=== PATIENT | female | born 1925 | race African-American/Black ===

== ENCOUNTER 2016-12-27 11:35 | Inpatient (IN) ==
[2016-12-27] MEDS ORDERED: 0.9 % Sodium Chloride 1,000 ML IVC ONE (12:02)
[2016-12-27 12:12] LABS: Bilirubin,Urine Negative (Negative); Blood,Urine Large (Negative); Color,Urine Yellow (Yellow); Glucose,Urine (UA) Normal (Normal); Ketones,Urine Negative (Negative); Leukocyte Esterase,Urine Moderate (Negative); Nitrite,Urine Negative (Negative); Protein,Urine Negative (Neg-Trace); Specific Gravity,Urine 1.021 (1.010-1.025); Urobilinogen,Urine Normal (Normal)
[2016-12-27 12:14] LABS: Clarity,Urine Slightly Cloudy (Clear); Hyaline Casts,Urine None Seen per lpf (None-Few); Squamous Epithelial Cell,Urine Many per lpf (None-Few); WBC,Urine 30-50 per hpf (0-3)
[2016-12-27 12:28] LABS: Bacteria,Urine Many per hpf (None-Few)
[2016-12-27 12:39] LABS: Basophils % 0.3 %; Eosinophils # 0.1 K/mcL (0.0-0.6); Eosinophils % 1.3 %; Hematocrit 36.2 % (35.3-44.9); Hemoglobin 11.2 g/dL (11.5-15.4); Immature Granulocytes % 0.1 % (0-4); Lymphocytes # 1.2 K/mcL (0.6-4.6); Lymphocytes % 17.2 %; Mean Corpuscular HGB Conc 30.9 g/dL (31.6-35.5); Mean Corpuscular Hemoglobin 28.5 pg (28.0-33.3); Mean Corpuscular Volume 92.1 fL (83.0-100.0); Mean Platelet Volume 10.6 fL (9.4-12.4); Monocytes # 0.6 K/mcL (0.0-1.3); Monocytes % 8.8 %; Platelet Count 226 K/mcL (140-400); Red Blood Count 3.93 M/mcL (3.82-4.97); Red Cell Distribution Width 14.3 % (11.5-14.5); Segmented Neutrophils % 72.3 %
[2016-12-27 12:55] LABS: BUN/Creatinine Ratio 30 (6-26); Blood Urea Nitrogen 31 mg/dL (7-20); Calcium 9.6 mg/dL (8.6-10.8); Carbon Dioxide 28 mEq/L (19-29); Chloride 102 mEq/L (98-109); Glucose 228 mg/dL (70-99); Osmolality,Calculated 302 (280-300); Potassium 4.1 mEq/L (3.5-4.5); Sodium 139 mEq/L (136-145); eGFR For African Americans > 60 (> 60); eGFR For Non-African Americans 51 (> 60)
--- NOTE | 2016-12-27 13:59 | Emergency Department Note ---
Disposition Clinical Impression: Weakness generalized Urinary tract infection Qualifiers: Urinary tract infection type: site unspecified Hematuria presence: with hematuria Qualified Code(s): N39.0 - Urinary tract infection, site not specified Disposition: Home, Self-Care Condition: Fair Referrals: Keshawn Escamilla MD [Primary Care Provider] - Forms: ED Satisfaction Letter Time of Disposition: 14:01 Weakness HPI - General Chief complaint: ED Weakness Stated complaint: Generalized weakness not eating x 2 days Time Seen by Provider: 12/27/16 11:39 Source: patient, family, EMS Mode of arrival: EMS Limitations: no limitations Nursing Notes Reviewed: Yes Vital Signs Reviewed: Yes - History of Present Illness Pt Subjective Complaint: generalized weakness/fatigue Onset (ago): day(s) (About 3 days) Duration: constant, gradually worsening Location: generalized Pain Scale: 0 Improves with: none Worsens with: exertion Associated symptoms: Reports: denies other symptoms - Related Data Home Medications Medication Instructions Recorded Confirmed Atorvastatin [Lipitor] 40 mg PO QAM 02/18/15 02/26/15 Donepezil [Aricept] 10 mg PO QAM 02/18/15 02/26/15 Losartan [Cozaar] 25 mg PO QAM 02/18/15 02/26/15 TraMADol [Ultram] 50 mg PO TID PRN 02/18/15 02/26/15 Trospium Chloride [Trospium 60 mg PO QAM 02/18/15 02/26/15 Chloride ER] Acetaminophen [Tylenol] 1,000 mg PO AD PRN 02/26/15 02/26/15 Aspirin Enteric Coated [Aspirin EC] 81 mg PO QAM 02/26/15 02/26/15 Previous Rx's Medication Instructions Recorded Hydrocodone/Acetaminophen [[place] 1 tab PO Q6H PRN #10 tab 06/06/15 5-325 Tablet] Allergies Allergy/AdvReac Type Severity Reaction Status Date / Time No Known Allergies Allergy Verified 02/18/15 16:09 All systems ED: reviewed and negative except as stated. Constitutional: Denies: fever, chills ENT ED: Denies: ear pain, throat pain, congestion Cardiovascular: Denies: chest pain, palpitations Respiratory: Denies: cough, dyspnea Gastrointestinal: Denies: abdominal pain, vomiting, diarrhea Genitourinary: Reports: dysuria. Denies: urgency, frequency Musculoskeletal: Denies: back pain Integumentary: Denies: rash Past Medical History - Past Medical History Attestation: Yes The following information was validated with the patient. Source: patient, obtained from family, nursing notes reviewed Medical history: Reports: cancer, dementia, diabetes, hyperlipidemia Surgical history: Reports: non-contributory Psychiatric history: Reports: no psych history MARINE TOWER OPERATOR history: Reports: no MARINE TOWER OPERATOR history - Social History Smoking Status: Never smoker Smokeless Tobacco Status: No Alcohol use: Reports: none Drug use: Reports: none Physical Exam - General Limitations: no limitations General appearance: alert, in no apparent distress - Head Head exam: atraumatic, normocephalic - Eye Eye exam: Present: normal appearance, PERRL, EOMI - ENT ENT exam: normal exam, normal oropharynx, mucous membranes moist, normal external ear exam - Neck Neck exam: Present: normal inspection, full ROM. Absent: meningismus - Chest Chest inspection: Present: normal inspection, symmetric chest wall rise. Absent : tenderness - Respiratory Respiratory exam: Present: normal lung sounds bilaterally. Absent: respiratory distress, wheezes - Cardiovascular Cardiovascular exam: Present: regular rate, normal rhythm, normal heart sounds - Abdominal Exam Abdominal exam: Present: soft, Non-Tender, normal bowel sounds - Extremities Exam Extremities exam: Present: normal inspection, full ROM - Neurological Exam Neurological exam: Present: alert, oriented X3. Absent: motor sensory deficit - Psychiatric Psychiatric exam: Present: normal affect, normal mood - Skin Skin exam: Present: warm, dry. Absent: rash Course Course Narrative: She presents with generalized weakness. No focal neurologic findings on evaluation. The physical exam does not identify the etiology. We will initiate a workup for weakness. Disposition will be based on diagnostic results and reevaluation. - Reevaluation(s) Reevaluation #1: Urinalysis positive for infection. Rest of the workup is negative. Patient is to be admitted because she is so weak at home as a result of this infection. I gave her IV Rocephin. I already spoke with the hospitalist who is accepted her for admission. Time: 14:03 - Consultations Consultation #1: Dr. Ramos, hospitalist - I discussed the case with the hospitalist. He is accepted the patient for admission. Time: 14:02 Vital Signs Temperature 97.7 F 12/27/16 11:57 Pulse Rate 88 12/27/16 11:57 Respiratory Rate 18 12/27/16 11:57 Blood Pressure 122/52 12/27/16 11:57 O2 Sat by Pulse Oximetry 96 12/27/16 11:57 Temperature 97.7 F 12/27/16 11:57 Pulse Rate 88 12/27/16 11:57 Respiratory Rate 18 12/27/16 11:57 Blood Pressure 122/52 12/27/16 11:57 O2 Sat by Pulse Oximetry 96 12/27/16 11:57 Oxygen Delivery Oxygen Delivery Room Air Weakness - Lab Data Lab results reviewed: Yes I reviewed the patient's lab results. Result diagrams: 12/27/16 12:34 12/27/16 12:34 Lab Results 12/27/16 12/27/16 12/27/16 Range/Units 11:45 12:34 12:34 WBC (4.3-11.1) K/mcL RBC (3.82-4.97) M/mcL Hgb (11.5-15.4) g/dL Hct (35.3-44.9) % MCV (83.0-100.0) fL MCH (28.0-33.3) pg MCHC (31.6-35.5) g/dL RDW (11.5-14.5) % Plt Count (140-400) K/mcL MPV (9.4-12.4) fL Immature Gran % (0-4) % Seg Neutrophils % % Lymphocytes % % Monocytes % % Eosinophils % % Basophils % % Neutrophils # (1.6-8.9) K/mcL Lymphocytes # (0.6-4.6) K/mcL Monocytes # (0.0-1.3) K/mcL Eosinophils # (0.0-0.6) K/mcL Basophils # (0.0-0.2) K/mcL Sodium 139 (136-145) mEq/L Potassium 4.1 (3.5-4.5) mEq/L Chloride 102 (98-109) mEq/L Carbon Dioxide 28 (19-29) mEq/L BUN 31 H (7-20) mg/dL Creatinine 1.02 (0.57-1.11) mg/dL Est GFR ( Amer) > 60 (> 60) Est GFR (Non-Af Amer) 51 L (> 60) BUN/Creatinine Ratio 30 H (6-26) Glucose 228 H (70-99) mg/dL Calculated Osmolality 302 H (280-300) Lactic Acid 2.0 (0.5-2.2) mmol/L Calcium 9.6 (8.6-10.8) mg/dL Troponin I (0-0.03) ng/mL Urine Color Yellow (Yellow) Urine Clarity Slightly Cloudy A (Clear) Urine pH 6.0 (5.0-8.0) pH Units Ur Specific [place] 1.021 (1.010-1.025) Urine Protein Negative (Neg-Trace) mg/dL Urine Glucose (UA) Normal (Normal) mg/dL Urine Ketones Negative (Negative) mg/dL Urine Blood Large H (Negative) Urine Nitrite Negative (Negative) Urine Bilirubin Negative (Negative) Urine Urobilinogen Normal (Normal) mg/dL Ur Leukocyte Esterase Moderate H (Negative) Urine Microscopic RBC 5-15 H (0-3) per hpf Urine Microscopic WBC 30-50 H (0-3) per hpf Ur Squamous Epith Cells Many H (None-Few) per lpf Urine Bacteria Many H (None-Few) per hpf Hyaline Casts None Seen (None-Few) per lpf Ur Culture Indicated? YES A (NO) 12/27/16 12/27/16 Range/Units 12:34 12:34 WBC 7.0 (4.3-11.1) K/mcL RBC 3.93 (3.82-4.97) M/mcL Hgb 11.2 L (11.5-15.4) g/dL Hct 36.2 (35.3-44.9) % MCV 92.1 (83.0-100.0) fL MCH 28.5 (28.0-33.3) pg MCHC 30.9 L (31.6-35.5) g/dL RDW 14.3 (11.5-14.5) % Plt Count 226 (140-400) K/mcL MPV 10.6 (9.4-12.4) fL Immature Gran % 0.1 (0-4) % Seg Neutrophils % 72.3 % Lymphocytes % 17.2 % Monocytes % 8.8 % Eosinophils % 1.3 % Basophils % 0.3 % Neutrophils # 5.0 (1.6-8.9) K/mcL Lymphocytes # 1.2 (0.6-4.6) K/mcL Monocytes # 0.6 (0.0-1.3) K/mcL Eosinophils # 0.1 (0.0-0.6) K/mcL Basophils # 0.0 (0.0-0.2) K/mcL Sodium (136-145) mEq/L Potassium (3.5-4.5) mEq/L Chloride (98-109) mEq/L Carbon Dioxide (19-29) mEq/L BUN (7-20) mg/dL Creatinine (0.57-1.11) mg/dL Est GFR ( Amer) (> 60) Est GFR (Non-Af Amer) (> 60) BUN/Creatinine Ratio (6-26) Glucose (70-99) mg/dL Calculated Osmolality (280-300) Lactic Acid (0.5-2.2) mmol/L Calcium (8.6-10.8) mg/dL Troponin I 0.03 (0-0.03) ng/mL Urine Color (Yellow) Urine Clarity (Clear) Urine pH (5.0-8.0) pH Units Ur Specific [place] (1.010-1.025) Urine Protein (Neg-Trace) mg/dL Urine Glucose (UA) (Normal) mg/dL Urine Ketones (Negative) mg/dL Urine Blood (Negative) Urine Nitrite (Negative) Urine Bilirubin (Negative) Urine Urobilinogen (Normal) mg/dL Ur Leukocyte Esterase (Negative) Urine Microscopic RBC (0-3) per hpf Urine Microscopic WBC (0-3) per hpf Ur Squamous Epith Cells (None-Few) per lpf Urine Bacteria (None-Few) per hpf Hyaline Casts (None-Few) per lpf Ur Culture Indicated? (NO) - Radiology Data Radiology results reviewed: Yes I reviewed the patient's radiology results. - EKG Data EKG shows normal: sinus rhythm, axis, intervals, QRS complexes, ST-T waves Rate: normal Interpretation: no acute changes
[2016-12-27] MEDS ORDERED: Acetaminophen 325 MG TABLET PO PRN (14:59)
[2016-12-27] MEDS ORDERED: Naloxone 0.4 MG/ML INJ IVP PRN (14:59)
[2016-12-27] MEDS ORDERED: Ondansetron 4 MG/2 ML VIAL IVP PRN (14:59)
[2016-12-27] MEDS: 0.9 % Sodium Chloride 1,000 ML IVC SCH (16:05)
--- NOTE | 2016-12-27 16:24 | Internal Med History&Physical ---
Date of Encounter: 12/27/16 Time of Encounter: 16:15 Assessment and Plan (1) Urinary tract infection Current visit: Yes Status: Acute UTI present on admission, with hematuria Cultures pending Empiric IV Rocephin Labs in a.m. History of bladder cancer in remission - with frequent hematuria and UTIs as per family Urology consult Qualifiers: Urinary tract infection type: acute cystitis Hematuria presence: with hematuria Qualified Code(s): N30.01 - Acute cystitis with hematuria (2) Weakness generalized Current visit: Yes Status: Acute Likely secondary to urinary tract infection, poor by mouth intake and mild dehydration Continue empiric IV Rocephin, IV fluids labs in a.m. (3) Dementia Current visit: No Status: Chronic Chronic, continue donepezil Qualifiers: Dementia type: Alzheimer's disease Alzheimer's disease onset: unspecified onset Dementia behavioral disturbance: without behavioral disturbance Qualified Code(s): G30.9 - Alzheimer's disease, unspecified; F02.80 - Dementia in other diseases classified elsewhere without behavioral disturbance (4) HTN (hypertension) Current visit: No Status: Chronic Essential hypertension, controlled, continue home meds, monitor Qualifiers: Hypertension type: essential hypertension Qualified Code(s): I10 - Essential (primary) hypertension (5) Diabetes mellitus Current visit: No Status: Chronic Diabetes mellitus type 2, [id number], not on any medications Insulin sliding scale, glucose checks Qualifiers: Diabetes mellitus type: type 2 Diabetes mellitus complication status: without complication Diabetes mellitus correction insulin use: without correction use Qualified Code(s): E11.9 - Type 2 diabetes mellitus without complications (6) DVT prophylaxis Current visit: Yes Status: Acute Continue SCDs, avoid anticoagulants due to hematuria Internal Medicine - H&P: HPI Chief complaint: Generalized weakness Admitted From: Emergency Dept Plans for Post Hospital Care: Home History of present illness: Ms. Mg is a 89 year old female with past medical history of hypertension, diabetes, hyperlipidemia, dementia and history of urinary bladder cancer in remission. Patient presents to the ED with complaints of generalized weakness that started about 2-3 days ago. Symptoms have gradually worsened. On examination patient is awake and alert. She is unable to give a good history likely due to generalized weakness and dementia. Patient is ill-appearing and frail. Most history is obtained from family members at bedside and also from medical records. Family including and son state that patient has been feeling generalized weakness for the past 2-3 days and her appetite is also been poor. They state that she usually only drinks Ensure about 3 times a day and usually does not eat anything else. She has been doing this for almost 3 years. But over the past 2-3 days she has not been drinking much. She seems to be increasingly fatigued. Patient has not complained of any fever or cough and has not complained of any shortness of breath or chest pain. She has not had any diarrhea or vomiting. No aggravating or alleviating factors. Family states that she had no other acute complaints at this time. They also mentioned that she had bladder cancer about 3 years ago and has been treated, and it has been in remission. Patient also used to get frequent biopsies of the bladder wall, but is no longer getting this because of a thin bladder. Son states that she makes very little urine daily and she does have frequent hematuria and also has frequent UTIs. Initial evaluation in the ED reveals urinary tract infection and the elevated glucose. Chest x-ray and CT of the brain were negative for any acute processes. Patient did have a Victoria catheter placed in the ED and there is some blood seen in the catheter and the back. Patient is complaining of lower abdominal pain. Catheter will need to be flushed, and if she still complaining of pain it will need to be removed. Patient is being admitted for UTI, and will need IV antibiotics and IV fluids. Patient and family members have been explained about the condition and planned care. Understood and agreed. No unanswered questions. CODE STATUS full code. Past Med Surg Social Fam HX - Past Medical History Medical history: cancer (History of bladder cancer), dementia, diabetes, hyperlipidemia Psychiatric history: no psych history - Past Surgical History Surgical History: hysterectomy, other (Local Injection for bladder cancer) - Social History Smoking Status: Never smoker Smokeless Tobacco Status: No Alcohol use: none Drug use: none Internal Medicine - H&P: Meds Atorvastatin [Lipitor] 40 mg PO QAM 02/18/15 [History] Donepezil [Aricept] 10 mg PO QAM 02/18/15 [History] Losartan [Cozaar] 25 mg PO QAM 02/18/15 [History] Acetaminophen [Tylenol] 1,000 mg PO Q6H PRN 02/26/15 [History] Aspirin Enteric Coated [Aspirin EC] 81 mg PO QAM 02/26/15 [History] Tolterodine Tartrate [Detrol] 2 mg PO BID 12/27/16 [History] Allergies No Known Allergies Allergy (Verified 12/27/16 14:09) ROS unobtainable: other (Due to generalized weakness) All Systems PM: A 10-system review of systems was performed and is negative for pertinent findings except as documented above in the HPI. Review of systems: Patient is a poor historian, she does have a history of dementia HISTORY is obtained from family members including son and , and also from medical records. - Constitutional Constitutional: fatigue, weakness, no fever(s) - Constitutional Vitals: Temp Pulse Resp BP Pulse Ox 97.7 F 88 18 122/52 96 12/27/16 11:57 12/27/16 11:57 12/27/16 11:57 12/27/16 11:57 12/27/16 11:57 General appearance: Present: A&O X 1, pleasant, no acute distress Exam: Generalized weakness, chronically ill-appearing, awake, unable to provide a good history. - Head Head exam: Present: atraumatic - Eye Eye exam: Absent: scleral icterus - Neck Neck exam general surgery: Present: supple - Respiratory Respiratory exam: Present: CTAB. Absent: rales, rhonchi, wheezes, tachypnea - Cardiovascular Cardiovascular exam: Present: RRR, +S1, +S2 - GI/Abdominal GI/Abdominal exam: Present: soft, tenderness (Mild epigastric and suprapubic tenderness.), no peritoneal signs. Absent: distended, firm, guarding, rigid - Extremities Exam Extremities exam: Present: pedal edema (Mild bilateral 1+ pitting edema), radial pulses palpable and symetrical. Absent: cyanotic, tenderness - Neurological Exam Neurological exam: Present: no focal deficits. Absent: facial droop Additional comments: Patient is awake and alert, ill-appearing, generalized weakness, she does have dementia, no obvious deficits, does not verbalize well, she follows simple verbal commands Internal Med - H&P Results - Labs CBC & Chem 7: 12/27/16 12:34 12/27/16 12:34
[2016-12-27 16:27] LABS: INR 1.2; Prothrombin Time 13.5 Seconds (9.4-12.1)
[2016-12-27] MEDS ORDERED: D5% in Water 1,000 ML IVC PRN (17:20)
[2016-12-27] MEDS ORDERED: *HR* Dextrose 50 % in Water (Syg) 50 ML SYRINGE IVP PRN (17:20)
[2016-12-27] MEDS ORDERED: Dextrose Gel 15 GM PO PRN ×2 (17:20)
[2016-12-27] MEDS ORDERED: Insulin LISPRO 300 UNITS/3 ML VIAL SQ SCH ×2 (17:30→22:00)
[2016-12-27] MEDS ORDERED: *HR* Heparin 5,000 UNIT/ML VIAL SQ SCH (18:00)
[2016-12-27] MEDS: Famotidine 20 MG/2 ML VIAL IVP SCH (18:52)
[2016-12-27] MEDS: Tolterodine LA (24 HR) 4 MG CAP.ER.24H PO SCH (21:27)
[2016-12-27] MEDS: Insulin LISPRO 300 UNITS/3 ML VIAL SQ SCH (22:30)
[2016-12-28 04:06] LABS: Basophils % 0.1 %; Eosinophils # 0.1 K/mcL (0.0-0.6); Eosinophils % 0.8 %; Hematocrit 30.5 % (35.3-44.9); Hemoglobin 9.6 g/dL (11.5-15.4); Immature Granulocytes % 0.4 % (0-4); Immature Platelets 3.4 % (1.1-6.1); Lymphocytes % 13.5 %; Mean Corpuscular HGB Conc 31.5 g/dL (31.6-35.5); Mean Corpuscular Hemoglobin 29.1 pg (28.0-33.3); Mean Corpuscular Volume 92.4 fL (83.0-100.0); Mean Platelet Volume 11.3 fL (9.4-12.4); Monocytes # 0.6 K/mcL (0.0-1.3); Monocytes % 7.3 %; Platelet Count 177 K/mcL (140-400); Red Cell Distribution Width 14.4 % (11.5-14.5); Segmented Neutrophils % 77.9 %
[2016-12-28 04:14] LABS: BUN/Creatinine Ratio 27 (6-26); Calcium 8.4 mg/dL (8.6-10.8); Carbon Dioxide 22 mEq/L (19-29); Chloride 108 mEq/L (98-109); Glucose 120 mg/dL (70-99); Osmolality,Calculated 290 (280-300); Potassium 3.9 mEq/L (3.5-4.5); Sodium 138 mEq/L (136-145); eGFR For African Americans > 60 (> 60); eGFR For Non-African Americans > 60 (> 60)
[2016-12-28 04:18] LABS: Blood Urea Nitrogen 20 mg/dL (7-20)
[2016-12-28] MEDS: Famotidine 20 MG/2 ML VIAL IVP SCH ×2 (06:05→17:10)
[2016-12-28] MEDS: Aspirin Enteric Coated 81 MG Tablet PO SCH (07:44)
--- NOTE | 2016-12-28 07:47 | Urology - Consult Note ---
Date of Encounter: 12/28/16 Time of Encounter: 07:37 - Assessment and Plan (1) Hematuria Current Visit: Yes Status: Acute Assessment and plan: 89-year-old woman with a history of hematuria and an indwelling catheter. She also has a history of bladder cancer. I would recommend continuing IV antibiotic for possible urinary tract infection. She will need a cystoscopy as an outpatient to evaluate for possible carcinoma in situ. No operative intervention is required at this time. We'll monitor her urine color for now. Qualifiers: Qualified Code(s): R31.0 - Gross hematuria (2) Cystitis Current Visit: No Status: Acute Assessment and plan: Her urinalysis is concerning for a bladder infection. She is currently on Rocephin. Await results of urine culture and tailor antibiotics appropriately. Urology [id number]:[email or web address] Consult date: 12/28/16 Reason for consult Urology: Gross Hematuria History of present illness: 89-year-old woman was admitted with a urinary tract infection and hematuria. She has a history of bladder cancer in the past and is followed by Dr. Rizo. She currently has a catheter in place. The urine is a light pink color. Obtaining history is difficult from her. She has a flat affect and does not communicate much. Past Med Surg Social Fam HX - Past Medical History Medical history: cancer, dementia, diabetes, hyperlipidemia Psychiatric history: no psych history - Past Surgical History Surgical History: hysterectomy, other - Social History Smoking Status: Never smoker Smokeless Tobacco Status: No Alcohol use: none Drug use: none - Family History Paternal Grandmother Hx Family Endocrine Disorder: Yes (DM) Medications and Allergies Atorvastatin [Lipitor] 40 mg PO QAM 02/18/15 [History] Donepezil [Aricept] 10 mg PO QAM 02/18/15 [History] Losartan [Cozaar] 25 mg PO QAM 02/18/15 [History] Acetaminophen [Tylenol] 1,000 mg PO Q6H PRN 02/26/15 [History] Aspirin Enteric Coated [Aspirin EC] 81 mg PO QAM 02/26/15 [History] Tolterodine Tartrate [Detrol] 2 mg PO BID 12/27/16 [History] Allergies No Known Allergies Allergy (Verified 12/27/16 14:09) Review of Systems ROS unobtainable: due to mental status Exam Initial Vital Signs Temp Pulse Resp BP Pulse Ox 97.7 F 88 18 122/52 96 12/27/16 11:57 12/27/16 11:57 12/27/16 11:57 12/27/16 11:57 12/27/16 11:57 - General physical appearance Present: well developed, no distress - Eyes Absent: icteric - ENT Present: normal nares - Neck Present: trachea midline - Respiratory Present: normal respiratory effort - Cardiovascular Cardiovascular exam IM: RRR - Abdomen Abdomen: Present: soft - Genitourinary Present: other (Victoria in place with light pink urine.) Urology Results - Labs 12/28/16 02:59 12/28/16 02:59 Abnormal lab results RBC 3.30 M/mcL (3.82-4.97) L 12/28/16 02:59 Hgb 9.6 g/dL (11.5-15.4) L D 12/28/16 02:59 Hct 30.5 % (35.3-44.9) L 12/28/16 02:59 MCHC 31.5 g/dL (31.6-35.5) L 12/28/16 02:59 PT 13.5 Seconds (9.4-12.1) H 12/27/16 12:34 BUN/Creatinine Ratio 27 (6-26) H 12/28/16 02:59 Glucose 120 mg/dL (70-99) H 12/28/16 02:59 POC Glucose 215 (58-89) H 12/27/16 19:34 Calcium 8.4 mg/dL (8.6-10.8) L 12/28/16 02:59 Urine Clarity Slightly Cloudy (Clear) A 12/27/16 11:45 Urine Blood Large (Negative) H 12/27/16 11:45 Ur Leukocyte Esterase Moderate (Negative) H 12/27/16 11:45 Urine Microscopic RBC 5-15 per hpf (0-3) H 12/27/16 11:45 Urine Microscopic WBC 30-50 per hpf (0-3) H 12/27/16 11:45 Ur Squamous Epith Cells Many per lpf (None-Few) H 12/27/16 11:45 Urine Bacteria Many per hpf (None-Few) H 12/27/16 11:45 Ur Culture Indicated? YES (NO) A 12/27/16 11:45 Diabetes panel 07/10/17 Range/Units 02:59 Sodium 138 (136-145) mEq/L Potassium 3.9 (3.5-4.5) mEq/L Chloride 108 (98-109) mEq/L Carbon Dioxide 22 (19-29) mEq/L BUN 20 D (7-20) mg/dL Creatinine 0.74 (0.57-1.11) mg/dL Glucose 120 H (70-99) mg/dL Calcium 8.4 L (8.6-10.8) mg/dL Calcium panel 12/28/16 Range/Units 02:59 Calcium 8.4 L (8.6-10.8) mg/dL Pituitary panel 12/28/16 Range/Units 02:59 Sodium 138 (136-145) mEq/L Potassium 3.9 (3.5-4.5) mEq/L Chloride 108 (98-109) mEq/L Carbon Dioxide 22 (19-29) mEq/L BUN 20 D (7-20) mg/dL Creatinine 0.74 (0.57-1.11) mg/dL Glucose 120 H (70-99) mg/dL Calcium 8.4 L (8.6-10.8) mg/dL Adrenal panel 12/28/16 Range/Units 02:59 Sodium 138 (136-145) mEq/L Potassium 3.9 (3.5-4.5) mEq/L Chloride 108 (98-109) mEq/L Carbon Dioxide 22 (19-29) mEq/L BUN 20 D (7-20) mg/dL Creatinine 0.74 (0.57-1.11) mg/dL Glucose 120 H (70-99) mg/dL Calcium 8.4 L (8.6-10.8) mg/dL All other labs normal. Consult Discharge Plan - Plan Referrals: Keshawn Escamilla MD [Primary Care Provider] -
[2016-12-28] MEDS: Insulin LISPRO 300 UNITS/3 ML VIAL SQ SCH ×4 (08:32→22:14)
--- NOTE | 2016-12-28 12:18 | Electrocardiograph Report ---
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
[2016-12-28] MEDS: 0.9 % Sodium Chloride 1,000 ML IVC SCH ×2 (14:53→15:12)
--- NOTE | 2016-12-28 18:43 | Internal Med Progress Note ---
<Kaushik Covarrubias - Last Filed: 12/28/16 18:43> Date of Encounter: 12/28/16 Time of Encounter: 08:00 - Assessment and plan (1) Cystitis Current Visit: No Status: Acute Assessment and plan: The patient has cystitis which is complicated by hematuria. Patient has extensive history of bladder cancer for which she has seen urology in the past. Although currently her white blood cell count is 7.7, there is a high concern for potential sepsis. Her lactic acid was previously 2.0. Urology has consultation is recommended a cystoscopy outpatient. This time we will treat the patient's UTI with IV Rocephin, and we will monitor closely.. (2) Hematuria Current Visit: Yes Status: Acute Assessment and plan: Urology has recommended outpatient cystoscopy. Qualifiers: Qualified Code(s): R31.0 - Gross hematuria (3) Dementia Current Visit: No Status: Chronic Qualifiers: Dementia type: Alzheimer's disease Alzheimer's disease onset: unspecified onset Dementia behavioral disturbance: without behavioral disturbance Qualified Code(s): G30.9 - Alzheimer's disease, unspecified; F02.80 - Dementia in other diseases classified elsewhere without behavioral disturbance (4) Diabetes mellitus Current Visit: No Status: Chronic Assessment and plan: Patient sugars are well controlled on current regimen. 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 We will continue to monitor. Qualifiers: Hypertension type: essential hypertension Qualified Code(s): I10 - Essential (primary) hypertension (6) DVT prophylaxis Current Visit: Yes Status: Acute Assessment and plan: SCDs are appropriate due to gross hematuria at this time. We will avoid anticoagulants. - Subjective Interval history: At the time of examination the patient was resting comfortably in bed. She was somnolent and somewhat agitated, however upon waking she was A&Ox3. She says that she's feeling a lot better in general, but does admit to some abdominal pain. - Constitutional Vitals: Temp Pulse Resp BP Pulse Ox 97.5 F L 68 15 96/63 98 12/28/16 15:35 12/28/16 15:35 12/28/16 15:35 12/28/16 15:35 12/28/16 15:35 General appearance: Present: A&O X 1, pleasant, no acute distress - Head Head exam: Present: atraumatic, normocephalic - Eye Eye exam: Present: PERRL, conjuntiva pink, sclera anicteric Pupils: Present: PERRL - Neck Neck exam general surgery: Present: supple, trachea midline. Absent: lymphadenopathy - Respiratory Respiratory exam: Present: CTAB. Absent: accessory muscle use, rales, rhonchi, wheezes - Cardiovascular Cardiovascular exam: Present: RRR, +S1, +S2. Absent: diastolic murmur, gallop, rubs, systolic murmur - GI/Abdominal GI/Abdominal exam: Present: guarding, normal bowel sounds, soft, tenderness. Absent: distended Additional comments: Voluntary guarding was present on examination. Patient showed tenderness to palpation in the lower left and lower right quadrants. Abdomen was soft. Bowel sounds were present in all 4 quadrants. - Extremities Exam Extremities exam: Present: warm, radial pulses palpable and symetrical. Absent : calf tenderness, cyanotic, pedal edema - Neurological Exam Neurological exam: Present: CN II-XII intact, oriented X3, no focal deficits. Absent: pronater drift, facial droop, speech deficit - Skin Skin exam: Present: dry, intact Internal Medicine: Result - Labs CBC & Chem 7: 12/28/16 02:59 12/28/16 02:59 Labs: Short CBC 12/28/16 Range/Units 02:59 WBC 7.7 (4.3-11.1) K/mcL Hgb 9.6 L D (11.5-15.4) g/dL Hct 30.5 L (35.3-44.9) % Plt Count 177 (140-400) K/mcL Neutrophils # 6.0 (1.6-8.9) K/mcL BMP 12/28/16 02:59 Sodium 138 Potassium 3.9 Chloride 108 Carbon Dioxide 22 BUN 20 D Creatinine 0.74 Glucose 120 H Calcium 8.4 L - ABG Interpretation ABG results: PT/INR, D-dimer PT 13.5 Seconds (9.4-12.1) H 12/27/16 12:34 - VTE Documentation of Mechanical Device: Intermittent pneumatic compression device Consult Discharge Plan - Plan Referrals: Keshawn Escamilla MD [Primary Care Provider] - <Rubén Romero - Last Filed: 12/28/16 19:18> Date of Encounter: 12/28/16 - Constitutional Vitals: Temp Pulse Resp BP Pulse Ox 97.5 F L 68 15 96/63 98 12/28/16 15:35 12/28/16 15:35 12/28/16 15:35 12/28/16 15:35 12/28/16 15:35 Internal Medicine: Result - Labs CBC & Chem 7: 12/28/16 02:59 12/28/16 02:59 Labs: Short CBC 12/28/16 Range/Units 02:59 WBC 7.7 (4.3-11.1) K/mcL Hgb 9.6 L D (11.5-15.4) g/dL Hct 30.5 L (35.3-44.9) % Plt Count 177 (140-400) K/mcL Neutrophils # 6.0 (1.6-8.9) K/mcL BMP 12/28/16 02:59 Sodium 138 Potassium 3.9 Chloride 108 Carbon Dioxide 22 BUN 20 D Creatinine 0.74 Glucose 120 H Calcium 8.4 L - ABG Interpretation ABG results: PT/INR, D-dimer PT 13.5 Seconds (9.4-12.1) H 12/27/16 12:34 - Attending Attestation I examined this patient and my medical decision-making was reviewed with the Resident Physician, Dr Covarrubias. I agree with the documented findings, disposition and treatment plan as described except to the extent set forth below. on examination the patient is tender to palpation in the suprapubic and area. Heart is regular. Plan: Continue Victoria catheter. Consult urology. Continue Pyridium.
[2016-12-28] MEDS: Tolterodine LA (24 HR) 4 MG CAP.ER.24H PO SCH (22:15)
[2016-12-29 05:22] LABS: Eosinophils # 0.1 K/mcL (0.0-0.6); Eosinophils % 1.7 %; Hematocrit 30.1 % (35.3-44.9); Hemoglobin 9.5 g/dL (11.5-15.4); Immature Granulocytes % 0.2 % (0-4); Lymphocytes # 1.1 K/mcL (0.6-4.6); Lymphocytes % 21.2 %; Mean Corpuscular HGB Conc 31.6 g/dL (31.6-35.5); Mean Corpuscular Hemoglobin 29.5 pg (28.0-33.3); Mean Corpuscular Volume 93.5 fL (83.0-100.0); Mean Platelet Volume 11.1 fL (9.4-12.4); Monocytes # 0.5 K/mcL (0.0-1.3); Monocytes % 8.9 %; Neutrophils # 3.5 K/mcL (1.6-8.9); Platelet Count 164 K/mcL (140-400); Red Blood Count 3.22 M/mcL (3.82-4.97); Red Cell Distribution Width 14.4 % (11.5-14.5)
[2016-12-29 05:37] LABS: BUN/Creatinine Ratio 16 (6-26); Blood Urea Nitrogen 11 mg/dL (7-20); Carbon Dioxide 24 mEq/L (19-29); Chloride 110 mEq/L (98-109); Glucose 117 mg/dL (70-99); Osmolality,Calculated 288 (280-300); Potassium 3.5 mEq/L (3.5-4.5); Sodium 139 mEq/L (136-145); eGFR For African Americans > 60 (> 60); eGFR For Non-African Americans > 60 (> 60)
[2016-12-29] MEDS: Famotidine 20 MG/2 ML VIAL IVP SCH ×2 (06:19→17:41)
[2016-12-29] MEDS: 0.9 % Sodium Chloride 1,000 ML IVC SCH ×2 (06:23→19:39)
[2016-12-29] MEDS: Insulin LISPRO 300 UNITS/3 ML VIAL SQ SCH ×4 (07:25→20:46)
[2016-12-29] MEDS ORDERED: *HR* Morphine 2 MG/ML SYRINGE IVP PRN (07:43)
[2016-12-29] MEDS ORDERED: Levofloxacin 750 MG/150 ML 750 MG/150 ML BAG IVPB SCH (08:00)
[2016-12-29] MEDS ORDERED: *HR* Heparin 5,000 UNIT/ML VIAL IVP ONE (08:00)
[2016-12-29] MEDS ORDERED: *HR* Heparin 5,000 UNIT/ML VIAL IVP PRN ×2 (08:00)
[2016-12-29] MEDS ORDERED: Heparin 25,000 UNIT/500 ML D5W 25,000 UNIT/500 ML MLS IVC SCH (08:00)
--- NOTE | 2016-12-29 08:10 | Internal Med Progress Note ---
Date of Encounter: 12/29/16 Time of Encounter: 08:03 - Assessment and plan (1) Non-STEMI (non-ST elevated myocardial infarction) Current Visit: Yes Status: Acute Assessment and plan: EKG shows T-wave inversions more pronounced in V2 and V3 on the first EKG, change from the prior one Continue aspirin and Lipitor Morphine as needed, nitroglycerin as needed Start heparin drip, may discontinue if gross hematuria is found. Send a UA to confirm hematuria is most likely the color of the urine is because the patient is taking Pyridium Stop Pyridium Cardiology consult (2) Cystitis Current Visit: No Status: Acute Assessment and plan: Acute metabolic encephalopathy likely exacerbated by urinary tract infection, patient has dementia at baseline Patient has extensive history of bladder cancer for which she has seen urology in the past. Her lactic acid was previously 2.0. Urology has consultation is recommended a cystoscopy as outpatient. Stop Rocephin as the patient has 3 prior cultures positive for Pseudomonas sensitive to Levaquin Start Levaquin, continue IV fluids Urine culture pending (3) Dementia Current Visit: No Status: Chronic Qualifiers: Dementia type: Alzheimer's disease Alzheimer's disease onset: unspecified onset Dementia behavioral disturbance: without behavioral disturbance Qualified Code(s): G30.9 - Alzheimer's disease, unspecified; F02.80 - Dementia in other diseases classified elsewhere without behavioral disturbance (4) HTN (hypertension) Current Visit: No Status: Chronic Assessment and plan: Hold losartan for now Qualifiers: Hypertension type: essential hypertension Qualified Code(s): I10 - Essential (primary) hypertension (5) Diabetes mellitus Current Visit: No Status: Chronic Assessment and plan: Continue insulin sliding scale. 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: without half-way use Qualified Code(s): E11.9 - Type 2 diabetes mellitus without complications (6) Urinary tract infection Current Visit: Yes Status: Acute Qualifiers: Urinary tract infection type: acute cystitis Hematuria presence: with hematuria Qualified Code(s): N30.01 - Acute cystitis with hematuria (7) Anemia Current Visit: Yes Status: Acute Assessment and plan: Possible acute blood lows anemia from prior hematuria May need to discontinue heparin drip if hemoglobin and hematocrit drops and gross hematuria is evidenced Qualifiers: Anemia type: iron deficiency Iron deficiency anemia type: other iron deficiency Qualified Code(s): D50.8 - Other iron deficiency anemias - Subjective Interval history: The patient is oriented only in person, was complaining of chest pain according to nurse earlier today, denies any chest pain or shortness of breath at the moment unable to provide history and unable to complete review of systems due to the patient's severe dementia - Constitutional Vitals: Temp Pulse Resp BP Pulse Ox 98.2 F 70 14 117/74 97 12/29/16 07:03 12/29/16 07:03 12/29/16 07:03 12/29/16 07:03 12/29/16 07:03 General appearance: Present: A&O X 1, pleasant, no acute distress - Head Head exam: Present: atraumatic, normocephalic - Eye Eye exam: Present: PERRL, conjuntiva pink, sclera anicteric Pupils: Present: PERRL - Neck Neck exam general surgery: Present: supple, trachea midline. Absent: lymphadenopathy - Respiratory Respiratory exam: Present: CTAB. Absent: accessory muscle use, rales, rhonchi, wheezes - Cardiovascular Cardiovascular exam: Present: RRR, +S1, +S2. Absent: diastolic murmur, gallop, rubs, systolic murmur - GI/Abdominal GI/Abdominal exam: Present: normal bowel sounds, soft, no peritoneal signs. Absent: distended, tenderness - Extremities Exam Extremities exam: Present: warm, radial pulses palpable and symetrical. Absent : calf tenderness, cyanotic, pedal edema Additional comments: Victoria catheter in place. Urine Appears reddish most likely because the patient is on Pyridium - Neurological Exam Neurological exam: Present: CN II-XII intact, no focal deficits. Absent: oriented X3, pronater drift, facial droop, speech deficit - Skin Skin exam: Present: dry, intact Internal Medicine: Result - Labs CBC & Chem 7: 12/29/16 04:35 12/29/16 04:35 Labs: Short CBC 12/29/16 Range/Units 04:35 WBC 5.2 (4.3-11.1) K/mcL Hgb 9.5 L (11.5-15.4) g/dL Hct 30.1 L (35.3-44.9) % Plt Count 164 (140-400) K/mcL Neutrophils # 3.5 (1.6-8.9) K/mcL BMP 12/29/16 04:35 Sodium 139 Potassium 3.5 Chloride 110 H Carbon Dioxide 24 BUN 11 Creatinine 0.69 Glucose 117 H Calcium 8.0 L Cardiac Enzymes 12/29/16 Range/Units 04:35 Troponin I 1.54 H* (0-0.03) ng/mL - ABG Interpretation ABG results: PT/INR, D-dimer PT 13.5 Seconds (9.4-12.1) H 12/27/16 12:34 - VTE Documentation of Mechanical Device: Intermittent pneumatic compression device Consult Discharge Plan - Plan Referrals: Keshawn Escamilla MD [Primary Care Provider] -
[2016-12-29] MEDS ORDERED: Nitroglycerin 0.4 MG TAB.SUBL SL PRN (08:15)
[2016-12-29] MEDS: Aspirin Enteric Coated 81 MG Tablet PO SCH (08:48)
[2016-12-29 09:22] LABS: Hematocrit 32.9 % (35.3-44.9); Hemoglobin 10.5 g/dL (11.5-15.4); Mean Corpuscular HGB Conc 31.9 g/dL (31.6-35.5); Mean Corpuscular Hemoglobin 29.7 pg (28.0-33.3); Mean Corpuscular Volume 93.2 fL (83.0-100.0); Mean Platelet Volume 10.8 fL (9.4-12.4); Platelet Count 172 K/mcL (140-400); Red Blood Count 3.53 M/mcL (3.82-4.97); Red Cell Distribution Width 14.4 % (11.5-14.5)
--- NOTE | 2016-12-29 09:26 | Cardiology Consult Note ---
Date of Encounter: 12/29/16 Time of Encounter: 08:40 Assessment and Plan (1) Non-STEMI (non-ST elevated myocardial infarction) Current Visit: Yes Status: Acute Patient presented to ED with hematuria, decreased po intake, and weakness. Reportedly developed chest pain early this AM--troponin was drawn and 1.5 with anterior ECG changes. She is pain free upon exam; has baseline dementia, alert to person only. Poor functional status. Recommend conservative medical management given dementia and questionable bladder CA relapse with hematuria/anemia. Not presently a candidate for LHC. Agree with IV heparin gtt for 24-48 hours--monitor H/H closely. Continue asa and statin. Will add low dose betablocker. Check echocardiogram, trend troponin. No indication for cardiac rehab at this time. Telemetry monitoring. Will continue to follow. (2) Dementia Current Visit: Yes Status: Chronic Baseline dementia; patient alert to self only. Qualifiers: Dementia type: Alzheimer's disease Alzheimer's disease onset: unspecified onset Dementia behavioral disturbance: without behavioral disturbance Qualified Code(s): G30.9 - Alzheimer's disease, unspecified; F02.80 - Dementia in other diseases classified elsewhere without behavioral disturbance (3) Hematuria Current Visit: Yes Status: Acute Hx of bladder cancer, previously in remission. HgB 11.2 upon admission, now 9.5. UA--large amount of blood; repeat UA collected this AM. Urology following; has recommend outpatient cysto to r/o carcinoma in situ given hematuria. Qualifiers: Hematuria type: unspecified type Qualified Code(s): R31.9 - Hematuria, unspecified Discussion w patient/family: The assessment and plan as outlined above was discussed with the patient and/or family members who expressed understanding and agreement. All questions were answered. Thank you for involving us in the care of your patient. Please call with any questions. The patient will be discussed and reviewed with Dr. Conti; changes to be made accordingly. History of Present Illness Consult date: 12/29/16 Requesting physician: Bam Riggs Consult reason: NSTEMI Chief complaint: chest pain, AMS History of present illness: Ms. Mg is a 89 year old female with PMHx significant for HTN, DMII, dementia, bladder CA (remission), frequent UTIs, and PAD who presented to the ED with decreased oral intake, hematuria, and weakness. HPI obtained from H&P as patient is alert to self only due to advanced dementia. Reportedly patient complained of chest discomfort early this AM; troponin 1.5 ( initial negative) with anterior ECG changes. Upon exam this AM, she has no complaints aside from catheter related discomfort. 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 Past Med Surg Social Fam HX - Past Medical History Attestation: Yes The following information was validated with the patient. Source: unable to obtain, old records reviewed Medical history: cancer, dementia, diabetes, hyperlipidemia, other (PAD) Psychiatric history: no psych history - Past Surgical History Surgical History: hysterectomy, other - Social History Smoking Status: Never smoker Smokeless Tobacco Status: No Alcohol use: none Drug use: none - Family History Paternal Grandmother Hx Family Endocrine Disorder: Yes (DM) Medications and Allergies Atorvastatin [Lipitor] 40 mg PO QAM 02/18/15 [History] Donepezil [Aricept] 10 mg PO QAM 02/18/15 [History] Losartan [Cozaar] 25 mg PO QAM 02/18/15 [History] Acetaminophen [Tylenol] 1,000 mg PO Q6H PRN 02/26/15 [History] Aspirin Enteric Coated [Aspirin EC] 81 mg PO QAM 02/26/15 [History] Tolterodine Tartrate [Detrol] 2 mg PO BID 12/27/16 [History] Allergies No Known Allergies Allergy (Verified 12/27/16 14:09) All Systems Review: A 10-system review of systems was performed and is negative for pertinent findings except as documented above in the HPI. - Cardiovascular Cardiovascular: as per HPI Physical Examination Vital Signs, Last 4 Hours Temp Pulse Resp BP Pulse Ox 12/29/16 07:03 98.2 F 70 14 117/74 97 General: No Apparent Distress, Other (alert to self only) HEENT: Atraumatic Cardiac: Reg Rate and Rhythm, Normal S1 and S2 Lungs: Normal Breath Sounds Neuro: Alert and responsive (alert to self only) Abdomen: Soft Skin: No rashes noted on visualized skin Extremities: Other (mild BLE edema, non-pitting) Results 12/29/16 09:11 12/29/16 04:35 Lab Results 12/29/16 12/29/16 12/29/16 04:35 04:35 04:35 WBC 5.2 Hgb 9.5 L Hct 30.1 L Plt Count 164 Sodium 139 Potassium 3.5 Chloride 110 H Carbon Dioxide 24 BUN 11 Creatinine 0.69 Glucose 117 H Calcium 8.0 L Troponin I 1.54 H* Active Medications Acetaminophen (Tylenol) 650 mg PO Q6HR PRN PRN Reason: Mild Pain (1-3) Stop: 06/28/17 15:00 Aspirin (Aspirin Ec) 81 mg PO [facility] Stop: 06/29/17 09:01 Last Admin: 12/29/16 08:48 Dose: 81 mg Atorvastatin Calcium (Lipitor) 40 mg PO [facility] Stop: 06/28/17 15:16 Last Admin: 12/29/16 08:48 Dose: 40 mg Dextrose/Water (Dextrose 50% (Syg)) 25 ml IVP AD PRN PRN Reason: Hypoglycemia Stop: 06/28/17 17:21 Donepezil HCl (Aricept) 10 mg PO [facility] Stop: 06/29/17 09:01 Last Admin: 12/29/16 08:48 Dose: 10 mg Famotidine (Pepcid) 10 mg IVP Q12HR [facility] Stop: 06/28/17 18:01 Last Admin: 12/29/16 06:19 Dose: 10 mg Glucagon (Glucagen) 1 mg IM ONCE PRN PRN Reason: Hypoglycemia Stop: 06/28/17 17:21 Glucose (Gluctose) 15 gm PO ONCE PRN PRN Reason: Hypoglycemia Stop: 06/28/17 17:21 Glucose (Gluctose) 30 gm PO ONCE PRN PRN Reason: Hypoglycemia Stop: 06/28/17 17:21 Heparin Sodium (Porcine) (Heparin) 3,500 unit 60 unit/kg (3500 unit) IVP Q6HR PRN PRN Reason: SEE COMMENTS Stop: 06/30/17 08:01 Heparin Sodium (Porcine) (Heparin) 1,800 unit 30 unit/kg (1800 unit) IVP Q6H PRN PRN Reason: SEE COMMENTS Stop: 06/30/17 08:01 Sodium Chloride (0.9 % Sodium Chloride) 1,000 mls @ 80 mls/hr IVC .[id number] [facility] Stop: 06/28/17 15:01 Last Admin: 12/29/16 06:23 Dose: 80 mls/hr Dextrose (Dextrose 5%) 1,000 mls @ 100 mls/hr IVC .Q10H PRN PRN Reason: HYPOGLYCEMIA Stop: 06/28/17 17:21 Levofloxacin/Dextrose (Levaquin Premix 750mg/150 Ml) 750 mg in 150 mls @ 100 mls/hr IVPB Q48H YANNI PRN Reason: Protocol Stop: 06/30/17 08:01 Last Admin: 12/29/16 08:48 Dose: 100 mls/hr Heparin Sodium/Dextrose (Heparin 25,000 Unit/500 Ml D5w) 25,000 unit in 500 mls @ 14.196 mls/hr IVC .Q24H YANNI; 12 UNIT/KG/HR PRN Reason: Protocol Stop: 06/30/17 08:01 Insulin Human Lispro (Humalog) 0 units SQ TIDAC [facility] PRN Reason: Protocol Stop: 06/29/17 07:31 Last Admin: 12/29/16 07:25 Dose: Not Given Insulin Human Lispro (Humalog) 0 units SQ HS [facility] PRN Reason: Protocol Stop: 06/28/17 22:16 Last Admin: 12/28/16 22:14 Dose: Not Given Losartan Potassium (Cozaar) 25 mg PO QAM [facility] PRN Reason: Protocol Stop: 06/29/17 09:01 Last Admin: 12/28/16 07:45 Dose: 25 mg Morphine Sulfate (Morphine Sulfate) 4 mg IVP Q3H PRN PRN Reason: Chest Pain Stop: 06/30/17 07:44 Naloxone HCl (Narcan) 0.4 mg IVP Q2MIN PRN PRN Reason: Opioid Reversal Stop: 06/28/17 15:00 Nitroglycerin (Nitroglycerin) 0.4 mg SL Q5MIN PRN PRN Reason: Chest Pain Stop: 06/30/17 08:16 Ondansetron HCl (Zofran) 4 mg IVP Q8HR PRN PRN Reason: Nausea And Vomiting Stop: 06/28/17 15:00 Tolterodine Tartrate (Detrol La) 4 mg PO HS [facility]ANNI Stop: 06/28/17 21:01 Last Admin: 12/28/16 22:15 Dose: 4 mg - Imaging and Cardiology Chest Xray: report reviewed Other Results: Pt. not on tele. - EKG Interpretation EKG results cardiology: personally reviewed Consult Discharge Plan - Plan Referrals: Keshawn Escamilla MD [Primary Care Provider] -
[2016-12-29 09:28] LABS: Bilirubin,Urine Small (Negative); Blood,Urine Large (Negative); Clarity,Urine Cloudy (Clear); Color,Urine Orange (Yellow); Glucose,Urine (UA) Normal (Normal); Ketones,Urine Trace mg/dL (Negative); Leukocyte Esterase,Urine Moderate (Negative); Nitrite,Urine Positive (Negative); Protein,Urine 100 mg/dL (Neg-Trace); Specific Gravity,Urine 1.019 (1.010-1.025); Urobilinogen,Urine Normal (Normal)
[2016-12-29 09:31] LABS: Bacteria,Urine None Seen per hpf (None-Few); Squamous Epithelial Cell,Urine Many per lpf (None-Few); WBC,Urine 50-100 per hpf (0-3)
[2016-12-29 09:31] LABS: INR 1.3; Prothrombin Time 13.9 Seconds (9.4-12.1)
[2016-12-29 09:34] LABS: Activated Partial Thrombo Time 25.7 Seconds (26.0-36.0)
[2016-12-29 09:46] LABS: RBC,Urine TNTC per hpf (0-3)
[2016-12-29 14:38] LABS: Hematocrit 29.1 % (35.3-44.9); Hemoglobin 9.3 g/dL (11.5-15.4)
[2016-12-29] MEDS: Tolterodine LA (24 HR) 4 MG CAP.ER.24H PO SCH (19:38)
[2016-12-30 04:44] LABS: Hematocrit 33.7 % (35.3-44.9); Hemoglobin 10.4 g/dL (11.5-15.4); Mean Corpuscular HGB Conc 30.9 g/dL (31.6-35.5); Mean Corpuscular Hemoglobin 28.7 pg (28.0-33.3); Mean Corpuscular Volume 93.1 fL (83.0-100.0); Mean Platelet Volume 11.3 fL (9.4-12.4); Platelet Count 141 K/mcL (140-400); Red Blood Count 3.62 M/mcL (3.82-4.97)
[2016-12-30 05:08] LABS: BUN/Creatinine Ratio 10 (6-26); Blood Urea Nitrogen 7 mg/dL (7-20); Carbon Dioxide 19 mEq/L (19-29); Chloride 110 mEq/L (98-109); Chol/HDL Ratio 3.1 (0-4.9); Cholesterol 88 mg/dL (< 200); Glucose 100 mg/dL (70-99); HDL Cholesterol 28 mg/dL (40-59); LDL Cholesterol,Calculated 50 mg/dL (0-99); Osmolality,Calculated 280 (280-300); Sodium 136 mEq/L (136-145); Triglycerides 50 mg/dL (< 150); eGFR For African Americans > 60 (> 60); eGFR For Non-African Americans > 60 (> 60)
[2016-12-30 05:14] LABS: Potassium 3.6 mEq/L (3.5-4.5)
[2016-12-30] MEDS: Famotidine 20 MG/2 ML VIAL IVP SCH ×2 (06:16→17:32)
--- NOTE | 2016-12-30 06:44 | Urology Progress Note ---
Date of Encounter: 12/30/16 Time of Encounter: 06:43 - Assessment and Plan (1) Hematuria Current Visit: Yes Status: Acute Assessment and plan: Urine has cleared. Cardiology note reviewed. Will need to monitor urine color while on anticoagulants. Qualifiers: Hematuria type: unspecified type Qualified Code(s): R31.9 - Hematuria, unspecified (2) Cystitis Current Visit: No Status: Acute Assessment and plan: Urine culture was negative although clinical picture was concerning for cystitis. I would recommend to treat with levofloxacin for 7 day course. Progress Note Narrative: Patient sleeping this morning. Urine is clear in Victoria. Objective Initial Vital Signs Temp Pulse Resp BP Pulse Ox 97.7 F 88 18 122/52 96 12/27/16 11:57 12/27/16 11:57 12/27/16 11:57 12/27/16 11:57 12/27/16 11:57 - General physical appearance Present: well developed, well nourished, no distress - Genitourinary Urine Appearance: Present: Clear (Victoria catheter in place.) - Labs 12/30/16 04:31 12/30/16 04:31 Diabetes panel 12/30/16 Range/Units 04:31 Sodium 136 (136-145) mEq/L Potassium 3.6 (3.5-4.5) mEq/L Chloride 110 H (98-109) mEq/L Carbon Dioxide 19 (19-29) mEq/L BUN 7 (7-20) mg/dL Creatinine 0.70 (0.57-1.11) mg/dL Glucose 100 H (70-99) mg/dL Calcium 8.0 L (8.6-10.8) mg/dL Triglycerides 50 (< 150) mg/dL HDL Cholesterol 28 L (40-59) mg/dL Calcium panel 12/30/16 Range/Units 04:31 Calcium 8.0 L (8.6-10.8) mg/dL Pituitary panel 12/30/16 Range/Units 04:31 Sodium 136 (136-145) mEq/L Potassium 3.6 (3.5-4.5) mEq/L Chloride 110 H (98-109) mEq/L Carbon Dioxide 19 (19-29) mEq/L BUN 7 (7-20) mg/dL Creatinine 0.70 (0.57-1.11) mg/dL Glucose 100 H (70-99) mg/dL Calcium 8.0 L (8.6-10.8) mg/dL Adrenal panel 12/30/16 Range/Units 04:31 Sodium 136 (136-145) mEq/L Potassium 3.6 (3.5-4.5) mEq/L Chloride 110 H (98-109) mEq/L Carbon Dioxide 19 (19-29) mEq/L BUN 7 (7-20) mg/dL Creatinine 0.70 (0.57-1.11) mg/dL Glucose 100 H (70-99) mg/dL Calcium 8.0 L (8.6-10.8) mg/dL - VTE Documentation of Mechanical Device: Intermittent pneumatic compression device Consult Discharge Plan - Plan Referrals: Keshawn Escamilla MD [Primary Care Provider] -
[2016-12-30] MEDS: Insulin LISPRO 300 UNITS/3 ML VIAL SQ SCH ×4 (08:34→21:38)
--- NOTE | 2016-12-30 08:59 | Internal Med Progress Note ---
Date of Encounter: 12/30/16 Time of Encounter: 08:57 - Assessment and plan (1) Non-STEMI (non-ST elevated myocardial infarction) Current Visit: Yes Status: Acute Assessment and plan: EKG shows T-wave inversions more pronounced in V2 and V3 on the first EKG, change from the prior one Continue aspirin and Lipitor Morphine as needed, nitroglycerin as needed Had to stop the heparin drip due to gross hematuria Stopped Pyridium Cardiology consulted, not a candidate for [facility]. medical management recommended alone (2) Cystitis Current Visit: No Status: Acute Assessment and plan: Acute metabolic encephalopathy likely exacerbated by urinary tract infection, patient has dementia at baseline Patient has extensive history of bladder cancer for which she has seen urology in the past. Her lactic acid was previously 2.0. Urology has consultation is recommended a cystoscopy as outpatient. Stopped Rocephin as the patient had 3 prior cultures positive for Pseudomonas sensitive to Levaquin Continue Levaquin day 2, continue IV fluids New UA showed too numerous to count red blood cells. Urine culture showed no growth ( was on antibiotics already) (3) Dementia Current Visit: Yes Status: Chronic Qualifiers: Dementia type: Alzheimer's disease Alzheimer's disease onset: unspecified onset Dementia behavioral disturbance: without behavioral disturbance Qualified Code(s): G30.9 - Alzheimer's disease, unspecified; F02.80 - Dementia in other diseases classified elsewhere without behavioral disturbance (4) HTN (hypertension) Current Visit: No Status: Chronic Assessment and plan: Hold losartan for now Qualifiers: Hypertension type: essential hypertension Qualified Code(s): I10 - Essential (primary) hypertension (5) Diabetes mellitus Current Visit: No Status: Chronic Assessment and plan: Continue insulin sliding scale. 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: without middle or intermediate school principal use Qualified Code(s): E11.9 - Type 2 diabetes mellitus without complications (6) Urinary tract infection Current Visit: Yes Status: Acute Qualifiers: Urinary tract infection type: acute cystitis Hematuria presence: with hematuria Qualified Code(s): N30.01 - Acute cystitis with hematuria (7) Anemia Current Visit: Yes Status: Acute Assessment and plan: Possible acute blood lows anemia from prior hematuria Qualifiers: Anemia type: iron deficiency Iron deficiency anemia type: other iron deficiency Qualified Code(s): D50.8 - Other iron deficiency anemias - Subjective Interval history: Oriented only in person, was complaining of chest pain yesterday, denies any chest pain or shortness of breath at the moment unable to provide history and unable to complete review of systems due to the patient's severe dementia - Constitutional Vitals: Temp Pulse Resp BP Pulse Ox 98.1 F 75 16 123/74 97 12/30/16 07:12 12/30/16 07:12 12/30/16 07:12 12/30/16 07:12 12/30/16 07:12 General appearance: Present: A&O X 1, pleasant, no acute distress Exam: - Head Head exam: Present: atraumatic, normocephalic - Eye Eye exam: Present: PERRL, conjuntiva pink, sclera anicteric Pupils: Present: PERRL - Neck Neck exam general surgery: Present: supple, trachea midline. Absent: lymphadenopathy - Respiratory Respiratory exam: Present: CTAB. Absent: accessory muscle use, rales, rhonchi, wheezes - Cardiovascular Cardiovascular exam: Present: RRR, +S1, +S2. Absent: diastolic murmur, gallop, rubs, systolic murmur - GI/Abdominal GI/Abdominal exam: Present: normal bowel sounds, soft, no peritoneal signs. Absent: distended, tenderness - Extremities Exam Extremities exam: Present: warm, radial pulses palpable and symetrical. Absent : calf tenderness, cyanotic, pedal edema Additional comments: Victoria catheter in place. No hematuria noticed Internal Medicine: Result - Labs CBC & Chem 7: 12/30/16 04:31 12/30/16 04:31 Labs: Short CBC 12/30/16 Range/Units 04:31 WBC 6.5 (4.3-11.1) K/mcL Hgb 10.4 L (11.5-15.4) g/dL Hct 33.7 L (35.3-44.9) % Plt Count 141 (140-400) K/mcL BMP 12/30/16 04:31 Sodium 136 Potassium 3.6 Chloride 110 H Carbon Dioxide 19 BUN 7 Creatinine 0.70 Glucose 100 H Calcium 8.0 L - ABG Interpretation ABG results: PT/INR, D-dimer PT 13.9 Seconds (9.4-12.1) H 12/29/16 09:11 - VTE Documentation of Mechanical Device: Intermittent pneumatic compression device Consult Discharge Plan - Plan Referrals: Keshawn Escamilla MD [Primary Care Provider] -
[2016-12-30] MEDS ORDERED: Levofloxacin 750 MG/150 ML 750 MG/150 ML BAG IVPB SCH (09:00)
[2016-12-30] MEDS: Aspirin Enteric Coated 81 MG Tablet PO SCH (09:29)
--- NOTE | 2016-12-30 11:26 | Electrocardiograph Report ---
[address] [place] [address] Test Date: 2016-12-29 Pat Name: Ludmila Mg Department: 113 Room: 3B Gender: F Rn Critical Care: [id number] : 1925 Requested By: Rubén Romero Order Number: [id number] Reading MD: Alanna Benavides Measurements Intervals [place] Rate: 73 P: 66 ME: 150 QRS: 34 QRSD: 99 T: 68 QT: 439 QTc: 465 Interpretive Statements SINUS RHYTHM MODERATE T-WAVE ABNORMALITY, CONSIDER ANTERIOR ISCHEMIA Electronically Signed On 12-30-2016 11:24:03 EDT by Alanna Benavides
--- NOTE | 2016-12-30 11:26 | Electrocardiograph Report ---
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
--- NOTE | 2016-12-30 12:56 | Cardiology Progress Note ---
Date of Encounter: 12/30/16 Time of Encounter: 12:40 Assessment and Plan (1) Non-STEMI (non-ST elevated myocardial infarction) Current Visit: Yes Status: Acute Patient presented to ED with hematuria, decreased po intake, and weakness. Reportedly developed chest pain early this AM--troponin was drawn and 1.5 with anterior ECG changes. She is pain free upon exam; has baseline dementia, alert to person only. Poor functional status. Recommend conservative medical management given dementia and questionable bladder CA relapse with hematuria/anemia. Not presently a candidate for [facility]. Heparin gtt d/c'ed by primary service d/t gross hematuria. Discussed plan with , he agrees with conservative medical therapy. No indication for cardiac rehab. Continue asa, statin, and betablocker. TTE demonstrates preserved LVEF with normal wall motion. No further inpatient recommendations, Cardiology will sign-off. Follow-up in the outpatient setting. (2) Dementia Current Visit: Yes Status: Chronic Baseline dementia; patient alert to self only. Qualifiers: Dementia type: Alzheimer's disease Alzheimer's disease onset: unspecified onset Dementia behavioral disturbance: without behavioral disturbance Qualified Code(s): G30.9 - Alzheimer's disease, unspecified; F02.80 - Dementia in other diseases classified elsewhere without behavioral disturbance (3) Hematuria Current Visit: Yes Status: Acute Hx of bladder cancer, previously in remission. HgB stable. UA--large amount of blood; repeat UA demonstrated increased amounts of blood. Urology following; has recommend outpatient cysto to r/o carcinoma in situ given hematuria. Qualifiers: Hematuria type: unspecified type Qualified Code(s): R31.9 - Hematuria, unspecified Discussion w patient/family: The assessment and plan as outlined above was discussed with the patient and/or family members who expressed understanding and agreement. All questions were answered. Thank you for involving us in the care of your patient. Please call with any questions. The patient was discussed and reviewed with Dr. Conti; Cardiology will sign-off, will coordinate appt in the outpatient setting. Subjective Principal diagnosis: Cystitis, NSTEMI Interval history: Seen and examined. Continues to be alert to person only. Has no complaints today upon exam. at bedside today. Objective Vital Signs, Last 4 Hours Temp Pulse Resp BP Pulse Ox 12/30/16 11:09 98.0 F 78 16 113/69 99 General: Conversant HEENT: Atraumatic, Normocephaly Cardiac: Reg Rate and Rhythm, Normal S1 and S2 Lungs: Normal Breath Sounds Neuro: Alert and responsive (alert to self only) Abdomen: Soft Extremities: No Edema, Normal Pulses Results 12/30/16 04:31 12/30/16 04:31 Lab Results 12/30/16 12/30/16 04:31 04:31 WBC 6.5 Hgb 10.4 L Hct 33.7 L Plt Count 141 Sodium 136 Potassium 3.6 Chloride 110 H Carbon Dioxide 19 BUN 7 Creatinine 0.70 Glucose 100 H Calcium 8.0 L Active Medications Acetaminophen (Tylenol) 650 mg PO Q6HR PRN PRN Reason: Mild Pain (1-3) Stop: 06/28/17 15:00 Last Admin: 12/29/16 17:42 Dose: 650 mg Aspirin (Aspirin Ec) 81 mg PO [facility] Stop: 06/29/17 09:01 Last Admin: 12/30/16 09:29 Dose: 81 mg Atorvastatin Calcium (Lipitor) 40 mg PO [facility] Stop: 06/28/17 15:16 Last Admin: 12/30/16 09:29 Dose: 40 mg Dextrose/Water (Dextrose 50% (Syg)) 25 ml IVP AD PRN PRN Reason: Hypoglycemia Stop: 06/28/17 17:21 Donepezil HCl (Aricept) 10 mg PO [facility] Stop: 06/29/17 09:01 Last Admin: 12/30/16 09:29 Dose: 10 mg Famotidine (Pepcid) 10 mg IVP Q12HR [facility] Stop: 06/28/17 18:01 Last Admin: 12/30/16 06:16 Dose: 10 mg Glucagon (Glucagen) 1 mg IM ONCE PRN PRN Reason: Hypoglycemia Stop: 06/28/17 17:21 Glucose (Gluctose) 15 gm PO ONCE PRN PRN Reason: Hypoglycemia Stop: 06/28/17 17:21 Glucose (Gluctose) 30 gm PO ONCE PRN PRN Reason: Hypoglycemia Stop: 06/28/17 17:21 Sodium Chloride (0.9 % Sodium Chloride) 1,000 mls @ 80 mls/hr IVC .[id number] [facility] Stop: 06/28/17 15:01 Last Admin: 07/11/17 19:39 Dose: 80 mls/hr Dextrose (Dextrose 5%) 1,000 mls @ 100 mls/hr IVC .Q10H PRN PRN Reason: HYPOGLYCEMIA Stop: 06/28/17 17:21 Levofloxacin/Dextrose (Levaquin Premix 750mg/150 Ml) 750 mg in 150 mls @ 100 mls/hr IVPB Q48H YANNI PRN Reason: Protocol Stop: 07/01/17 09:01 Last Admin: 12/30/16 09:30 Dose: 100 mls/hr Insulin Human Lispro (Humalog) 0 units SQ TIDAC [facility] PRN Reason: Protocol Stop: 06/29/17 07:31 Last Admin: 12/30/16 12:19 Dose: 8 units Insulin Human Lispro (Humalog) 0 units SQ HS [facility] PRN Reason: Protocol Stop: 06/28/17 22:16 Last Admin: 12/29/16 20:46 Dose: 3 units Losartan Potassium (Cozaar) 25 mg PO QAM [facility] PRN Reason: Protocol Stop: 06/29/17 09:01 Last Admin: 12/28/16 07:45 Dose: 25 mg Metoprolol Tartrate (Lopressor) 12.5 mg PO BID [facility] Stop: 06/30/17 09:46 Last Admin: 12/30/16 09:29 Dose: 12.5 mg Morphine Sulfate (Morphine Sulfate) 4 mg IVP Q3H PRN PRN Reason: Chest Pain Stop: 06/30/17 07:44 Naloxone HCl (Narcan) 0.4 mg IVP Q2MIN PRN PRN Reason: Opioid Reversal Stop: 06/28/17 15:00 Nitroglycerin (Nitroglycerin) 0.4 mg SL Q5MIN PRN PRN Reason: Chest Pain Stop: 06/30/17 08:16 Ondansetron HCl (Zofran) 4 mg IVP Q8HR PRN PRN Reason: Nausea And Vomiting Stop: 06/28/17 15:00 Tolterodine Tartrate (Detrol La) 4 mg PO HS [facility] Stop: 06/28/17 21:01 Last Admin: 12/29/16 19:38 Dose: 4 mg - Imaging and Cardiology Echo: report reviewed Other Results: 12 hour tele: avg HR=72 SR. No significant event noted. - EKG Interpretation EKG results cardiology: personally reviewed - VTE Documentation of Mechanical Device: Intermittent pneumatic compression device Consult Discharge Plan - Plan Referrals: Keshawn Escamilla MD [Primary Care Provider] -
[2016-12-30] MEDS: 0.9 % Sodium Chloride 1,000 ML IVC SCH (15:17)
[2016-12-30] MEDS: Tolterodine LA (24 HR) 4 MG CAP.ER.24H PO SCH (21:36)
[2016-12-31] MEDS: 0.9 % Sodium Chloride 1,000 ML IVC SCH (02:20)
[2016-12-31] MEDS: Famotidine 20 MG/2 ML VIAL IVP SCH (06:18)
[2016-12-31 07:06] LABS: Basophils % 0.5 %; Eosinophils # 0.1 K/mcL (0.0-0.6); Eosinophils % 1.1 %; Hematocrit 30.9 % (35.3-44.9); Hemoglobin 9.9 g/dL (11.5-15.4); Immature Granulocytes % 0.2 % (0-4); Lymphocytes % 23.2 %; Mean Corpuscular Hemoglobin 29.1 pg (28.0-33.3); Mean Corpuscular Volume 90.9 fL (83.0-100.0); Mean Platelet Volume 9.9 fL (9.4-12.4); Monocytes # 0.5 K/mcL (0.0-1.3); Monocytes % 11.4 %; Neutrophils # 2.8 K/mcL (1.6-8.9); Platelet Count 165 K/mcL (140-400); Red Cell Distribution Width 14.2 % (11.5-14.5); Segmented Neutrophils % 63.6 %
[2016-12-31 07:15] VITALS: BP 117/60
[2016-12-31 07:21] LABS: BUN/Creatinine Ratio 9 (6-26); Blood Urea Nitrogen 6 mg/dL (7-20); Carbon Dioxide 23 mEq/L (19-29); Chloride 111 mEq/L (98-109); Glucose 101 mg/dL (70-99); Osmolality,Calculated 284 (280-300); Potassium 3.4 mEq/L (3.5-4.5); Sodium 138 mEq/L (136-145); eGFR For African Americans > 60 (> 60); eGFR For Non-African Americans > 60 (> 60)
[2016-12-31] MEDS: Aspirin Enteric Coated 81 MG Tablet PO SCH (08:57)
[2016-12-31] MEDS: Insulin LISPRO 300 UNITS/3 ML VIAL SQ SCH (09:00)
--- NOTE | 2016-12-31 10:12 | Discharge Summary ---
Date of Encounter: 12/31/16 Time of Encounter: 10:09 - Discharge Diagnosis (1) Non-STEMI (non-ST elevated myocardial infarction) Priority: Primary Status: Acute (2) Cystitis Priority: Primary Status: Acute Comments: Acute metabolic encephalopathy likely exacerbated by urinary tract infection, patient has dementia at baseline (3) Dementia Priority: Secondary Status: Chronic Qualifiers: Dementia type: Alzheimer's disease Alzheimer's disease onset: unspecified onset Dementia behavioral disturbance: without behavioral disturbance Qualified Code(s): G30.9 - Alzheimer's disease, unspecified; F02.80 - Dementia in other diseases classified elsewhere without behavioral disturbance (4) HTN (hypertension) Priority: Secondary Status: Chronic Qualifiers: Hypertension type: essential hypertension Qualified Code(s): I10 - Essential (primary) hypertension (5) Diabetes mellitus Priority: Secondary Status: Chronic Qualifiers: Diabetes mellitus type: type 2 Diabetes mellitus complication status: without complication Diabetes mellitus fci insulin use: without emt intermediate use Qualified Code(s): E11.9 - Type 2 diabetes mellitus without complications (6) Urinary tract infection Priority: Secondary Status: Acute Qualifiers: Urinary tract infection type: acute cystitis Hematuria presence: with hematuria Qualified Code(s): N30.01 - Acute cystitis with hematuria (7) Anemia Priority: Secondary Status: Acute Qualifiers: Anemia type: iron deficiency Iron deficiency anemia type: other iron deficiency Qualified Code(s): D50.8 - Other iron deficiency anemias - Discharge Medications Prescriptions: Levofloxacin [Levaquin] 750 mg PO DAILY #5 tablet Metoprolol [Lopressor] 12.5 mg PO BID #30 tab Home Medications: Atorvastatin [Lipitor] 40 mg PO QAM 02/18/15 [History] Donepezil [Aricept] 10 mg PO QAM 02/18/15 [History] Losartan [Cozaar] 25 mg PO QAM 02/18/15 [History] Acetaminophen [Tylenol] 1,000 mg PO Q6H PRN 02/26/15 [History] Aspirin Enteric Coated [Aspirin EC] 81 mg PO QAM 02/26/15 [History] Tolterodine Tartrate [Detrol] 2 mg PO BID 12/27/16 [History] Levofloxacin [Levaquin] 750 mg PO DAILY #5 tablet 12/31/16 [Rx] Metoprolol [Lopressor] 12.5 mg PO BID #30 tab 12/31/16 [Rx] Nitroglycerin 0.4 mg SL Q5MIN PRN 12/31/16 [Rx] Allergies/Adverse Reactions: Allergies No Known Allergies Allergy (Verified 12/27/16 14:09) Procedures/tests Complete & Pending: Procedures Performed prior 72 hours Category Date Time Status ECG 12 lead ECG [ECG] Routine Y 12/29/16 08:11 Completed Date of admission: 12/29/16 14:34 Primary care physician: Keshawn Escamilla MD - Patient Status Disposition: Transfer SNF Condition: Fair - Discharge Instructions Follow Up With: Keshawn Escamilla MD [Primary Care Provider] - Additional Instructions: Continue 5 more days of Levaquin. Continue aspirin, metoprolol, statin, nitroglycerin as needed. - Diet and Activity Activity: as per physical therapy Diet: low fat, low cholesterol Hospital course: Ms. Mg is a 89 year old female with past medical history of hypertension, diabetes not insulin-dependent, hyperlipidemia, dementia and history of urinary bladder cancer in remission. Patient presented to the ED with complaints of generalized weakness that started about 2-3 days. Symptoms gradually worsened. Family including and son stated that patient was weak for the past 2-3 days and her appetite was also been poor. Initial evaluation in the ED reveals urinary tract infection and the elevated glucose. Chest x-ray and CT of the brain were negative for any acute processes. Patient did have a Victoria catheter placed in the ED and there is some blood seen in the catheter and the back. Patient is complaining of lower abdominal pain. Catheter will need to be flushed, and if she still complaining of pain it will need to be removed. The patient was admitted to the hospital and was started on Rocephin. After reviewing her chart this was switched to Levaquin as the patient grew Pseudomonas in 3 locations in the past. The patient's new urine culture did not grow any bacteria probably because the patient was on antibiotics already. The second UA looked worse with positive nitrites and too numerous to count white blood cells, the patient was in distress for which she was switched to Levaquin. During her hospitalization the patient started complaining of chest pain. EKG showed T-wave inversions more pronounced in V2 and V3 on the first EKG, change from the prior one. Troponin was 1.5. Cardiology was consulted, was not a candidate for [facility]. medical management recommended alone. Continue aspirin and Lipitor, heparin drip had to be stopped due to gross hematuria Stopped Pyridium The patient was also diagnosed with: Acute metabolic encephalopathy likely exacerbated by urinary tract infection, patient has dementia at baseline, has extensive history of bladder cancer for which she has seen urology in the past. Her lactic acid was previously 2.0. Urology has consultation is recommended a cystoscopy as outpatient. Stable to be discharged - Time Spent with Patient Total time spent providing and/or coordinating discharge services: Greater than 30 minutes (40 min) - Constitutional Vitals: Temp Pulse Resp BP Pulse Ox 97.8 F 70 15 117/60 97 12/31/16 07:09 12/31/16 07:09 12/31/16 07:09 12/31/16 07:09 12/31/16 07:09 General appearance: Present: A&O X 1, pleasant, no acute distress Exam: - Head Head exam: Present: atraumatic, normocephalic - Eye Eye exam: Present: PERRL, conjuntiva pink, sclera anicteric Pupils: Present: PERRL - Neck Neck exam general surgery: Present: supple, trachea midline. Absent: lymphadenopathy - Respiratory Respiratory exam: Present: CTAB. Absent: accessory muscle use, rales, rhonchi, wheezes - Cardiovascular Cardiovascular exam: Present: RRR, +S1, +S2. Absent: diastolic murmur, gallop, rubs, systolic murmur - GI/Abdominal GI/Abdominal exam: Present: normal bowel sounds, soft, no peritoneal signs. Absent: distended, tenderness - Extremities Exam Extremities exam: Present: warm, radial pulses palpable and symetrical. Absent : calf tenderness, cyanotic, pedal edema Additional comments: Victoria catheter in place. No hematuria noticed - VTE Documentation of Mechanical Device: Intermittent pneumatic compression device
--- NOTE | 2016-12-31 10:33 | Physician Discharge Referral ---
ExtendedCare Referral Info Provider in Charge after Transfer: PCP Institutional Level of Care: Skilled - Diagnosis (1) Non-STEMI (non-ST elevated myocardial infarction) Status: Acute (2) Cystitis Status: Acute (3) Dementia Status: Chronic (4) HTN (hypertension) Status: Chronic (5) Diabetes mellitus Status: Chronic (6) Urinary tract infection Status: Acute (7) Anemia Status: Acute - Transfer Medications Prescriptions: Levofloxacin [Levaquin] 750 mg PO DAILY #5 tablet Metoprolol [Lopressor] 12.5 mg PO BID #30 tab Home Medications: Atorvastatin [Lipitor] 40 mg PO QAM 02/18/15 [History] Donepezil [Aricept] 10 mg PO QAM 02/18/15 [History] Losartan [Cozaar] 25 mg PO QAM 02/18/15 [History] Acetaminophen [Tylenol] 1,000 mg PO Q6H PRN 02/26/15 [History] Aspirin Enteric Coated [Aspirin EC] 81 mg PO QAM 02/26/15 [History] Tolterodine Tartrate [Detrol] 2 mg PO BID 12/27/16 [History] Levofloxacin [Levaquin] 750 mg PO DAILY #5 tablet 12/31/16 [Rx] Metoprolol [Lopressor] 12.5 mg PO BID #30 tab 12/31/16 [Rx] Nitroglycerin 0.4 mg SL Q5MIN PRN 12/31/16 [Rx] Allergies/Adverse Reactions: Allergies No Known Allergies Allergy (Verified 12/27/16 14:09) - Respiratory Orders Smoking Cessation: Smoking cessation has been advised. For more information, call the [place] Tobacco Quit Line at 8-410-WANL-NOW. - Advance Directives Code Status: Full Code - Rehabiliation Orders Rehab Orders: Evaluation for Physical Therapy - Treatments List/Other: Continue 5 more days of Levaquin. Continue aspirin, metoprolol, statin, nitroglycerin as needed. CERTIFICATION: I certify that the transfer of the above named patient to an Extended Care Facility is necessary for the continuing treatment of the diagnosis listed. The above information is true and accurate reflection of patient's current condition. Confidential - Redisclosure prohibited without a patient's written consent.
== END 2016-12-31 13:25 | DRG 280 ==
LOC: EMEROO 11:35 → 3BNU 11:35 → SUATTDRO 14:24 → 3BNU 17:16 → SUATTDRO 12-29 14:34
PROVIDERS: ADMIT Family Medicine; ATTEND Internal Medicine